=== PATIENT | male | born 1975 | race Caucasian/White ===

== ENCOUNTER 2019-01-30 17:00 | Emergency (ER) | payer SELFPAY ==
[2019-01-30] MEDS ORDERED: Acetaminophen 500 MG TAB ONE (17:37)
== END 2019-01-30 17:40 | disposition home or self-care (01) ==
LOC: ERS 17:00
DX: K40.90 Unilateral inguinal hernia, without obstruction or gangrene, not specified as recurrent (principal); F17.210 Nicotine dependence, cigarettes, uncomplicated
CPT/HCPCS: 99283

== ENCOUNTER 2019-02-03 13:35 | Emergency (ER) | payer SELFPAY | END 2019-02-03 15:19 | disposition left against medical advice (07) | LOC: ERS 13:35 | DX: Z53.21 Procedure and treatment not carried out due to patient leaving prior to being seen by health care provider (principal) ==

== ENCOUNTER 2019-02-17 14:26 | Emergency (ER) | payer SELFPAY | END 2019-02-17 19:27 | disposition left against medical advice (07) | LOC: ERS 14:26 | DX: Z53.21 Procedure and treatment not carried out due to patient leaving prior to being seen by health care provider (principal); F17.210 Nicotine dependence, cigarettes, uncomplicated | CPT/HCPCS: 99283 ==